=== PATIENT | female | born 1955 | race Caucasian/White ===

== ENCOUNTER 2018-09-07 05:50 | Day surgery (SDC) | payer BC ==
[~2018-09-07] VITALS: Ht 160 cm; Wt 108.0 kg
[~2018-09-07 05:50] MED LIST: Carvedilol12.5 MG PO; Doxycycline Hy100 MG PO; ERYT.5TO RIGHTEYE; Furosemide20 MG PO; GLIP10 PO; INSULANPEN; LEVSOD50 PO; LISI20 PO; Lasix40 MG PO; METF500 PO; OMEP20ER PO; POTCHL20ER PO; Pravachol40 MG PO; SITA50T2 PO; TRAM50 PO
[2018-09-07] MEDS ORDERED: POTCHL20ER PO (06:30)
[2018-09-07] MEDS ORDERED: ASPI81CH PO (10:31)
--- NOTE | 2018-09-07 11:52 | NUR ---
TR BAND FULLY DEFLATED, REMAINS ON PT'S RIGHT WRIST. SITE APPEARS SOFT NON TENDER WITH NO ACTIVE BLEEDING OR PAIN PER PT. ARM BOARD ALSO ON FOR SUPPORT. WILL CONTINUE TO MONITOR.
--- NOTE | 2018-09-07 12:30 | NUR ---
TR BAND REMOVED. -BLEEDING OR SWELLING. PUNCTURE AREA CLEANED WITH NS. CLOTH DOT DRSG PLACED. R WRIST SPLINT REAPPLIED. PT AND VERBALIZED UNDERSTANDING OF WRITTEN AND VERBBAL D/C INST. IV REMOVED. PT TAKEN OUT OF THE HRT CENTER VIA W/C.
== END 2018-09-07 13:11 | disposition home or self-care (01) ==
LOC: MHTC 05:50
DX: I25.119 Atherosclerotic heart disease of native coronary artery with unspecified angina pectoris (principal); I10 Essential (primary) hypertension; E11.9 Type 2 diabetes mellitus without complications; K21.9 Gastro-esophageal reflux disease without esophagitis; E03.9 Hypothyroidism, unspecified; Z88.8 Allergy status to other drugs, medicaments and biological substances; Z79.899 Other long term (current) drug therapy; Z79.82 Long term (current) use of aspirin; Z79.4 Long term (current) use of insulin
CPT/HCPCS: 85347; 93454; 93571; C1753; C1769; C1887; C1894; J1644; J2250; J3010; J7030; Q9967

== ENCOUNTER 2018-09-27 18:33 | Emergency (ER) | payer BC ==
[~2018-09-27] VITALS: Ht 160 cm; Wt 106.6 kg
[~2018-09-27 18:33] MED LIST changes: +ASPI81CH PO
[2018-09-27 19:46] LABS: Albumin, Blood 3.5 g/dL (3.4-5.0); Albumin/Globulin Ratio 0.8 (0.8-1.8); Bilirubin, Total 0.4 mg/dL (0.1-1.0); Bun/Creatinine Ratio 25.2 (12.0-20.0); Calcium, Blood 9.4 mg/dL (8.5-10.1); Creatinine, Blood 1.63 mg/dL (0.40-1.00); Globulin, Blood 4.5 g/dL (2.2-4.0); Potassium, Blood 5.4 mmol/L (3.5-5.5)
== END 2018-09-27 20:20 | disposition home or self-care (01) ==
LOC: ER 18:33
PROVIDERS: Physician Assistant
DX: E87.5 Hyperkalemia (principal); I11.0 Hypertensive heart disease with heart failure; I50.9 Heart failure, unspecified; E11.9 Type 2 diabetes mellitus without complications
CPT/HCPCS: 80053; 99284-25

== ENCOUNTER → 2018-10-21 | Outpatient (CLI) | payer BC ==
[2018-10-21 10:39] LABS: Albumin, Blood 3.4 g/dL (3.4-5.0); Albumin/Globulin Ratio 0.7 (0.8-1.8); Bilirubin, Total 0.3 mg/dL (0.1-1.0); Bun/Creatinine Ratio 18.2 (12.0-20.0); Calcium, Blood 9.2 mg/dL (8.5-10.1); Creatinine, Blood 1.48 mg/dL (0.40-1.00); Globulin, Blood 4.6 g/dL (2.2-4.0); Potassium, Blood 5.8 mmol/L (3.5-5.5); Uric Acid, Blood 8.8 mg/dL (2.6-6.0)
== END | disposition home or self-care (01) ==
LOC: LAB SHORT 10:21 → LAB EV 10:21
PROVIDERS: Physician Assistant
DX: M10.9 Gout, unspecified (principal)
CPT/HCPCS: 80053; 84550

== ENCOUNTER → 2019-04-23 | Outpatient (CLI) | payer MEDICARE, BC ==
[2019-04-24 06:45] LABS: Stool Occult Bld Immuno 1 Positive (NEGATIVE)
== END | disposition home or self-care (01) ==
LOC: LAB 09:30 → LAB SHORT 09:30 → LAB FUT 01-10 07:50
PROVIDERS: Physician Assistant
DX: D64.9 Anemia, unspecified (principal)
CPT/HCPCS: 82274

== ENCOUNTER → 2019-05-22 | Outpatient (CLI) | payer MEDICARE, BC ==
[2019-05-22 15:14] LABS: Source, Urine Clean Catch
[2019-05-22 18:20] LABS: Appearance, Urine Hazy (Clear); Bilirubin, Urine Neg (Neg); Blood, Urine Neg (Neg); Color, Urine Yellow (P-Yellow); Glucose Qualitative, Urine Neg (Neg); Ketones, Urine Neg (Neg); Leukocyte Esterase, Urine 2+ (Neg); Nitrite, Urine Neg (Neg); Protein, Urine Neg (Neg); Specific Gravity, Urine 1.015 (1.003-1.022); Urobilinogen, Urine NORM (Normal)
[2019-05-22 18:46] LABS: Red Blood Cells, Urine 0-2 /hpf (0-2)
[2019-05-22 18:47] LABS: Bacteria Mod /hpf; Squamous Epithelial Cells Mod /hpf (Few)
[2019-05-22 19:18] LABS: Creatinine, Urine Random 73.8 mg/dL (27.00-270.00)
== END | disposition home or self-care (01) ==
LOC: LAB 14:00 → LAB SHORT 14:00
PROVIDERS: Internal Medicine
DX: N18.3 Chronic kidney disease, stage 3 (moderate) (principal)
CPT/HCPCS: 81001; 82570; 84156